=== PATIENT | female | born 1940 | race American Indian/Alaskan Native ===

== ENCOUNTER 2016-11-13 08:45 | Day surgery (SDC) | payer MEDICARE ==
[2016-11-06 10:15] VITALS: BMI 20.9
[2016-11-13] MEDS ORDERED: Propofol 10 mg/ml Inj (20 ML) ONE ×2 (11:00→11:15)
== END 2016-11-13 13:00 | disposition home or self-care (01) ==
LOC: C.ENDO 08:45
PROVIDERS: ATTEND Internal Medicine Gastroenterology
DX: Z12.11 Encounter for screening for malignant neoplasm of colon (principal); K57.30 Diverticulosis of large intestine without perforation or abscess without bleeding; K64.8 Other hemorrhoids; I10 Essential (primary) hypertension; I25.2 Old myocardial infarction; Z79.02 Long term (current) use of antithrombotics/antiplatelets; Z79.82 Long term (current) use of aspirin; Z95.5 Presence of coronary angioplasty implant and graft
CPT/HCPCS: 45378; J2704